=== PATIENT | male | born 1975 | race African-American/Black ===

== ENCOUNTER 2017-10-12 01:46 | Emergency (ER) | payer MEDICAID ==
[~2017-10-12] VITALS: Ht 177.8 cm; Wt 81.7 kg
[~2017-10-12 01:46] MED LIST: PERCOCET 5-3251 EACH PO; VALIUM5 MG PO
[2017-10-12] MEDS ORDERED: NORVASC2.5 MG (01:53)
[2017-10-12] MEDS ORDERED: ALBUTEROL2.5 MG/0.1 (01:54)
[2017-10-12] MEDS ORDERED: KEFLEX500 M2 PO (03:00)
[2017-10-12 03:25] VITALS: BP 120/78
== END 2017-10-12 03:28 | disposition home or self-care (01) ==
LOC: M.ERS 01:46
DX: S61.216A Laceration without foreign body of right little finger without damage to nail, initial encounter (principal); S61.214A Laceration without foreign body of right ring finger without damage to nail, initial encounter; J45.909 Unspecified asthma, uncomplicated; F17.210 Nicotine dependence, cigarettes, uncomplicated; Z88.6 Allergy status to analgesic agent; Z88.5 Allergy status to narcotic agent; Z88.0 Allergy status to penicillin; Z88.1 Allergy status to other antibiotic agents; W26.8XXA Contact with other sharp object(s), not elsewhere classified, initial encounter; Y93.89 Activity, other specified; Y92.89 Other specified places as the place of occurrence of the external cause; Y99.8 Other external cause status

== ENCOUNTER 2017-10-24 12:54 | Emergency (ER) | payer MEDICAID ==
[~2017-10-24] VITALS: Ht 180.3 cm; Wt 90.7 kg
[~2017-10-24 12:54] MED LIST changes: +ALBUTEROL2.5 MG/0.1; +KEFLEX500 M2 PO; +NORVASC2.5 MG
[2017-10-24 13:03] VITALS: BP 142/89
== END 2017-10-24 13:15 | disposition home or self-care (01) ==
LOC: M.ERS 12:54
DX: S61.216D Laceration without foreign body of right little finger without damage to nail, subsequent encounter (principal); J45.909 Unspecified asthma, uncomplicated; F17.210 Nicotine dependence, cigarettes, uncomplicated; Z88.6 Allergy status to analgesic agent; Z88.0 Allergy status to penicillin; Z88.1 Allergy status to other antibiotic agents; Z88.5 Allergy status to narcotic agent; X58.XXXD Exposure to other specified factors, subsequent encounter